=== PATIENT | male | born 1975 | race Caucasian/White ===

== ENCOUNTER 2018-09-30 15:09 | Observation (INO) | payer SELFPAY ==
[2018-09-30 16:37] LABS: #Basophils 0.1 thou/uL (0.0-0.2); #Eosinphils 0.6 thou/uL (0.0-0.7); #Lymphocytes 2.4 thou/uL (1.20-3.40); #Monocytes 0.8 thou/uL (0.11-0.59); #Neutrophils 6.4 thou/uL (1.40-6.50); %Basophils 0.9 % (0.0-1.0); %Eosinophils 5.6 % (0.0-10.0); %Lymphocytes 23.1 % (21.0-51.0); %Monocytes 7.7 % (0.0-10.0); %Neutrophils 62.7 % (42.0-75.0); Hemoglobin 14.1 g/dL (14.0-18.0); Mean Corpuscular HGB CONC 32.9 g/dL (32.0-36.0); Mean Corpuscular Volume 97.3 fL (78.0-98.0); Mean Platelet Volume 7.4 fL (7.4-10.4); Platelet Count 316 thou/uL (130-400); RBC Distribution Width 11.4 % (11.5-14.5); Red Blood Cell (RBC) Count 4.41 mill/uL (4.70-6.10); White Blood Cell (WBC) Count 10.2 thou/uL (4.8-10.8)
[2018-09-30 17:05] LABS: ALT (SGPT) 11 U/L (8-55); AST (SGOT) 11 U/L (5-34); Albumin 4.4 g/dL (3.5-5.0); Alkaline Phosphatase 66 U/L (40-150); Anion Gap 10 mmol/L (10-20); BUN (Urea Nitrogen) 14 mg/dL (8.9-20.6); Bilirubin, Total 0.9 mg/dL (0.2-1.2); Calc. Creatinine Clearance 0 mL/min (70-130); Calcium 9.9 mg/dL (7.8-10.44); Carbon Dioxide 29 mmol/L (22-29); Chloride 105 mmol/L (98-107); Estimated GFR-MDRD 88; Globulin 3.1 g/dL (2.4-3.5); Glucose 80 mg/dL (70-105); Potassium 3.8 mmol/L (3.5-5.1); Protein, Total 7.5 g/dL (6.0-8.3); Sodium 140 mmol/L (136-145)
[2018-09-30 18:03] LABS: Bilirubin Negative (Negative); Blood, Urine Negative (Negative); Clarity CLEAR (Clear); Glucose, Urine (Dipstick) Negative (Negative); Leukocyte Negative (Negative); Nitrite Negative (Negative); Protein, Urine (Dipstick) Negative (Neg-Trace); Specific Gravity, Urine 1.005 (1.002-1.036); Urobilinogen 0.2 mg/dL (0.2-1.0); pH, Urine 6.5 (5.0-9.0)
[2018-09-30] MEDS ORDERED: Ketorolac Tromethamine 30 MG/ML VIAL IVP PRN (19:58)
[2018-09-30] MEDS ORDERED: Ondansetron PF 4 MG/2 ML Vial IVP PRN (19:59)
[2018-09-30] MEDS ORDERED: HYDROcodone/Acetaminophen 5/325 mg Tablet PO PRN ×2 (19:59)
[2018-09-30] MEDS ORDERED: Ondansetron ODT 4 MG TAB SL PRN (19:59)
[2018-09-30] MEDS: Sodium Chloride 0.9% 1,000 ML IV SCH (21:11)
[2018-09-30] MEDS ORDERED: CEFAZOLIN 2 GM in Premix Bag 1 BAG IVPB SCH (21:15)
[2018-09-30 22:43] VITALS: BMI 25.1
--- NOTE | 2018-10-01 03:38 | HP ---
CHIEF COMPLAINT: Painful left groin bulge. HISTORY: This is a 43-year-old male, who has a 1-year history of left groin bulge. He says over the last 4 to 5 days, he has been coughing a lot and the hernia got larger and became extremely painful, so he came to the emergency room. It was difficult, but eventually was able to be reduced, but it immediately comes back out. PAST MEDICAL HISTORY: Otherwise, unremarkable. PAST SURGICAL HISTORY: None. MEDICATIONS: None. ALLERGIES: NO KNOWN DRUG ALLERGIES. SOCIAL HISTORY: He is . Uses 1 can of snuff daily. Social alcohol. He is a tank truck driver. FAMILY HISTORY: Family history of breast cancer. PHYSICAL EXAMINATION: VITAL SIGNS: Temperature 97.7, pulse 48, and blood pressure 114/76. GENERAL: Well-developed and well-nourished male, in no apparent distress. HEENT: Unremarkable. LUNGS: Clear. HEART: Regular rate and rhythm. ABDOMEN: Soft, nondistended, and nontender. Large scrotal left inguinal hernia, it can be partially reduced. At this point, it is not tender anymore. EXTREMITIES: Unremarkable. LABORATORY DATA: White count 10, H and H of 14 and 42, and platelet count 316. Electrolytes are fine. Urinalysis clear. ASSESSMENT: Left inguinal hernia with history of incarceration. PLAN: Left inguinal hernia repair with mesh. CONSENT: I have discussed the planned procedure as well as risk of bleeding, infection, recurrence, injury to nerve. He understands and gives informed consent. Job ID: [id number]
[2018-10-01] MEDS: Sodium Chloride 0.9% 1,000 ML IV SCH (05:01)
[2018-10-01] MEDS ORDERED: ceFAZolin Sodium 2 GM/100 ML BAG ONE (06:12)
[2018-10-01] MEDS ORDERED: Ondansetron PF 4 MG/2 ML Vial ONE ×2 (06:24→12:30)
[2018-10-01] MEDS ORDERED: Bupivacaine/Epinephrine 0.25% 30 ML VIAL ONE (06:40)
[2018-10-01] MEDS ORDERED: Midazolam HCl 2 mg/2 ml Vial ONE (07:16)
[2018-10-01] MEDS ORDERED: Fentanyl 100 MCG/2 ML VIAL ONE ×2 (07:16→08:52)
[2018-10-01] MEDS ORDERED: HYDROcodone/Acetaminophen 10/325 mg Tablet PO PRN ×2 (08:26)
[2018-10-01] MEDS ORDERED: Promethazine HCl 25 MG/ML VIAL SLOW IVP PRN (08:32)
[2018-10-01] MEDS ORDERED: Promethazine HCl 25 MG/ML VIAL IM PRN (08:32)
[2018-10-01] MEDS ORDERED: Ondansetron HCl/PF 4 MG/2 ML Vial IVP PRN (08:32)
[2018-10-01] MEDS ORDERED: HYDROmorphone 2 MG/ML VIAL SLOW IVP PRN (08:32)
[2018-10-01] MEDS ORDERED: PACU-Morphine 4MG/ML VIAL SLOW IVP PRN (08:32)
[2018-10-01 09:43] VITALS: TEMP 99
--- NOTE | 2018-10-01 11:07 | OP ---
DATE OF PROCEDURE: PREOPERATIVE DIAGNOSIS: Large scrotal left inguinal hernia with history of incarceration. PROCEDURE PERFORMED: Left inguinal hernia repair with mesh. INDICATIONS: A 43-year-old male, who has had about a one year history of a bulge in the left groin, which became much larger about four days ago and he developed excruciating pain. He went to the ER. It was difficult to reduce, eventually got it to be reduced yesterday. He was observed overnight and repaired this morning. FINDINGS: Large indirect inguinal hernia. DESCRIPTION OF PROCEDURE: After informed consent was obtained, the patient was taken to the operating room and given general endotracheal anesthesia. He was placed in supine position. His groin was prepped and draped in usual fashion. Local anesthesia infiltrated subcutaneously and deep. A transverse left inguinal incision was performed. Subcu divided sharply. The fascia of the external oblique was incised in direction of its fibers through the external ring. He had a very large spermatic cord. The hernia was reduced and this cord was encircled with a Delano drain. Cremasteric fibers . The hernia sac was dissected out, however, because of its size had to be divided. Some of it was left attached to the testicle. The hernia sac was then from surrounding cord structures down to the internal ring, ligated with 0 silk suture. Redundant sac excised. The remaining sac was reduced. Reduction maintained with a PHS hernia system. The posterior layer placed in the preperitoneal space. Anterior was laid out, tucked under the external oblique fascia laterally, sutured to the pubic tubercle medially. A notch was cut out for the spermatic cord. Hemostasis assured. The testicle was replaced into the scrotum. The external oblique fascia was closed over the cord with a running 3-0 Vicryl. Alpesh was closed with interrupted 3-0 Vicryl and skin closed with a running subcuticular 4-0 Rapide. Steri-Strips applied. Sterile bandage applied. The patient tolerated the procedure well and transferred to Recovery in good condition. Sponge and needle count verified correct x2. Job ID: [id number]
[2018-10-01] MEDS ORDERED: PHENYLEPHRINE-NS 100 MCG/ML 10 ML SYRINGE ONE (12:30)
[2018-10-01] MEDS ORDERED: Succinylcholine Chloride 20 MG/ML 10 ml SYRINGE FS ONE (12:30)
[2018-10-01] MEDS ORDERED: Ketorolac Tromethamine 30 MG/ML VIAL ONE (12:30)
[2018-10-01] MEDS ORDERED: Dexamethasone 20 MG/5 ML VIAL ONE (12:30)
[2018-10-01] MEDS ORDERED: Glycopyrrolate 0.2 MG/ML 5 ML SYRINGE ONE (12:30)
[2018-10-01] MEDS ORDERED: Rocuronium Bromide 10 MG/ML (10ML VIAL) ONE (12:30)
[2018-10-01] MEDS ORDERED: PROPOFOL 200 MG/20 ML VIAL ONE (12:30)
[2018-10-01] MEDS ORDERED: Lidocaine 1% PF 5 ML VIAL ONE (12:30)
[2018-10-01 16:28] VITALS: BP 102/60
--- NOTE | 2018-10-02 05:01 | DIS ---
DATE OF ADMISSION: 09/30/2018 DATE OF DISCHARGE: 10/01/2018 DISCHARGE DIAGNOSIS: Incarcerated left inguinal hernia. PROCEDURES DURING ADMISSION: Left inguinal hernia repair with mesh. HOSPITAL COURSE: The patient was admitted. We were able to get his hernia reduced. He was taken to the operating room the next morning, where he underwent a left inguinal hernia repair. Postoperatively, he has done well. His pain is controlled on p.o. medications. He is tolerating diet. He is discharged home on hydrocodone and Colace. He will follow up with me in 2 weeks. Job ID: [id number]
== END 2018-10-01 16:28 | disposition home or self-care (01) ==
LOC: ERS 15:09 → SURG B 19:40
PROVIDERS: ADMIT Surgery; ATTEND Surgery
PROC: 0YU60JZ Supplement Left Inguinal Region with Synthetic Substitute, Open Approach (ICD-10-PCS; principal; 2018-10-01)
DX: K40.90 Unilateral inguinal hernia, without obstruction or gangrene, not specified as recurrent (principal); F17.290 Nicotine dependence, other tobacco product, uncomplicated; Z79.899 Other long term (current) drug therapy
CPT/HCPCS: 36415; 80053; 81003; 85025; 96360; 96361; 99284; C1781; G0378; J0690; J1100; J1885; J2001; J2250; J2405; J2704; J3010